=== PATIENT | male | born 1955 | race Caucasian/White ===

== ENCOUNTER 2023-08-19 19:31 | Outpatient (CLI) | payer OTHER | END 2023-08-19 23:59 | disposition critical access hospital (66) | LOC: EMS 19:31 | DX: R55 Syncope and collapse (principal); R53.83 Other fatigue | CPT/HCPCS: A0425; A0429 ==

== ENCOUNTER 2023-08-19 19:47 | Observation (INO) | payer OTHER ==
[2023-08-19 20:31] LABS: BASOPHILS % (AUTO) 0.3 %; EOSINOPHILS % (AUTO) 0.4 %; HCT - HEMATOCRIT 40.6 % (42.0-52.0); HGB - HEMOGLOBIN 14.1 g/dL (14.0-18.0); LYMPHOCYTES # (AUTO) 1.1 10^3/uL (1.5-3.5); LYMPHOCYTES % (AUTO) 13.5 %; MEAN CORPUSCULAR HEMOGLOBIN 30.6 pg (27.0-31.0); MEAN CORPUSCULAR HGB CONC 34.7 g/dL (32.0-36.0); MEAN CORPUSCULAR VOLUME 88.1 fL (80.0-94.0); MONOCYTES # (AUTO) 0.6 10^3/uL (0.0-1.0); MONOCYTES % (AUTO) 7.4 %; NEUTROPHILS # (AUTO) 6.1 10^3/uL (1.5-6.6); PLT - PLATELET COUNT 205 10^3/uL (130-450); RED BLOOD COUNT 4.61 10^6/uL (4.70-6.10); RED CELL DISTRIBUTION WIDTH 11.9 % (12.0-15.0); WHITE BLOOD COUNT 7.8 x10^3/uL (4.8-10.8)
[2023-08-19] MEDS: SODIUM CHLORIDE 0.9% 1,000 ML IV STA (20:32)
--- NOTE | 2023-08-19 20:43 | ED Physician Documentation ---
History of Present Illness - Stated complaint Stated Complaint: DIZZINESS - Chief complaint Chief Complaint: Neuro - History obtained from History obtained from: Patient - Additonal information Additional information: Patient is a 68-year-old male with a history of hypertension, hyperlipidemia presenting for evaluation of feeling diaphoretic and lightheaded this evening. Patient drove from the [place] area today to visit his daughter. This evening around 645 he reported breaking into a sweat and then went to the toilet to have a bowel movement and started feeling lightheaded. He denies that he had to strain significantly for the bowel movement. He feels that the diaphoresis and that the lightheadedness lasted approximately 30 minutes. He felt that he was going to faint but did not. He denies vertigo or room spinning sensation. Denies chest pain or shortness of air.He has recently felt fatigued over the past few weeks and [facility] He has not re cently had a stress test. No history of coronary artery disease. Does report a history of a right bundle branch block from childhood. No recent illness with cough, congestion. No abdominal symptoms. Review of Systems Constitutional: denies: Fever Cardiac: denies: Chest pain / pressure Respiratory: denies: Dyspnea GI: denies: Abdominal Pain, Vomiting : denies: Dysuria Neurologic: reports: Near syncope PD PAST MEDICAL HISTORY - Past Medical History Past Medical History: Yes Cardiovascular: Hypertension, High cholesterol Respiratory: None Neuro: None Endocrine/Autoimmune: None GI: GERD : None HEENT: None Psych: Anxiety Musculoskeletal: None Derm: None - Allergies Allergies/Adverse Reactions: Allergies Allergy/AdvReac Type Severity Reaction Status Date / Time Penicillins Allergy Hives Verified 08/19/23 20:01 - Social History Does the pt smoke?: No Smoking Status: Never smoker Does the pt drink ETOH?: No Does the pt have substance abuse?: No - Immunizations Immunizations are current?: Yes - POLST Patient has POLST: No PD ED PE NORMAL - General General: Alert and oriented X 3, No acute distress, Well developed/nourished - HEENT HEENT: Atraumatic, PERRL, EOMI, Moist mucous membranes, Pharynx benign - Neck Neck: Supple, no meningeal sign - Cardiac Cardiac: RRR, Strong equal pulses - Respiratory Respiratory: No respiratory distress, Clear bilaterally - Abdomen Abdomen: Normal bowel sounds, Soft, Non tender, Non distended - Derm Derm: Warm and dry - Extremities Extremities: No edema, No calf tenderness / cord - Neuro Neuro: Alert and oriented X 3, 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, No motor deficit, No sensory deficit, Normal speech Eye Opening: Spontaneous Motor: Obeys Commands Verbal: Oriented GCS Score: 15 Results - Vitals Vitals: Vital Signs - 24 hr 08/19/23 08/19/23 20:01 22:04 Temperature 36.8 C Heart Rate 94 105 H Heart Rate [ 109 H Sitting] Heart Rate [ 113 H Standing] Heart Rate [ 98 Supine] Respiratory 16 21 Rate Blood Pressure 126/70 117/68 Blood Pressure 113/72 [Sitting] Blood Pressure 117/68 [Standing] Blood Pressure 117/68 [Supine] O2 Saturation 97 96 Oxygen O2 Source Room air - EKG (time done) 2039 EKG releavant findings:: EKG personally interpreted by author of this note. Relevant findings are: Rate 90, normal sinus rhythm, right bundle branch block - Labs Labs: Laboratory Tests 08/19/23 08/19/23 20:27 20:27 WBC 7.8 RBC 4.61 L Hgb 14.1 Hct 40.6 L MCV 88.1 MCH 30.6 MCHC 34.7 RDW 11.9 L Plt Count 205 MPV 8.0 Neut # (Auto) 6.1 Lymph # (Auto) 1.1 L [place] # (Auto) 0.6 Eos # (Auto) 0.0 Baso # (Auto) 0.0 Absolute Nucleated RBC 0.00 Nucleated RBC % 0.0 Sodium 121 L Potassium 3.8 Chloride 90 L Carbon Dioxide 23 Anion Gap 8.0 BUN 16 Creatinine 0.9 Estimated GFR (MDRD) 84 L Glucose 177 H Calcium 9.1 Total Bilirubin 1.2 H AST 20 ALT 24 Alkaline Phosphatase 54 Troponin I High Sens 2.8 Total Protein 6.1 L Albumin 4.2 Globulin 1.9 L Albumin/Globulin Ratio 2.2 Lipase 29 PD Medical Decision Making - ED course Complexity details: reviewed results, re-evaluated patient, d/w patient ED course: Patient is a 68-year-old male with a history of hypertension presenting for evaluation of near syncope and recently feeling fatigued. EKG is nonischemic. No chest pain. CBC, chemistry, troponin were reviewed. Labs significant for hyponatremia with a sodium of 121. Patient states he was told in May that his sodium was slightly low at that time and was encouraged to reduce his water intake but he has not. He states that his doctor was planning to recheck it in a few months but prior to this he did not have any issues with low sodiums in the past. No vomiting or diarrhea.Patient is awake, conversant, no neurodeficits. Hypertonic saline was ordered as patient is symptomatic but it is unavailable currently in the hospital as prior stock was used for other patients this evening in the emergency department. Delay in admission due to lack of staffing for inpatient beds. Discussed with admitting hospitalist, Dr. Stanley, who will admit for further management. Departure - Departure Disposition: 67 [facility] Clinical Impression: Hyponatremia, Near syncope Condition: Good Discharge Date/Time: 08/20/23 01:24
[2023-08-19 20:46] LABS: ALBUMIN 4.2 g/dL (3.2-5.5); ALBUMIN/GLOBULIN RATIO 2.2 (1.0-2.2); BILIRUBIN,TOTAL 1.2 mg/dL (0.2-1.0); CALCIUM 9.1 mg/dL (8.5-10.3); CREATININE 0.9 mg/dL (0.6-1.3); POTASSIUM 3.8 mmol/L (3.5-4.5); TOTAL PROTEIN 6.1 g/dL (6.4-8.9)
[2023-08-19 20:59] LABS: TROPONIN I HIGH SENSITIVITY 2.8 ng/L (2.3-19.7)
--- NOTE | 2023-08-19 21:05 | XRAY Report ---
PROCEDURE: Chest 1V INDICATIONS: near syncope TECHNIQUE: One view of the chest was acquired. COMPARISON: None. FINDINGS: Surgical changes and devices: Post surgical changes are seen in lower cervical spine. Lungs and pleura: No pleural effusions or pneumothorax. Lungs are clear. Mediastinum: Mediastinal contours appear normal. Heart size is normal. Bones and chest wall: No suspicious bony lesions. Overlying soft tissues appear unremarkable. IMPRESSION: No acute cardiopulmonary process. Reviewed by: Saurabh Shelby MD on 08/19/2023 9:03 PM PDT Approved by: Saurabh Shelby MD on 08/19/2023 9:03 PM PDT Station ID: [id number]
[2023-08-19] MEDS: SODIUM CHLORIDE 3% HYPERTONIC 50 ML IV SCH (22:58)
[2023-08-20] MEDS ORDERED: SODIUM CHLORIDE FLUSH 0.9% 10 ML SYRINGE IVP PRN (00:22)
[2023-08-20] MEDS ORDERED: ONDANSETRON ODT 4 MG TABLET TL PRN (00:22)
[2023-08-20] MEDS ORDERED: oxyCODONE 5 MG TABLET PO PRN (00:22)
[2023-08-20] MEDS ORDERED: ACETAMINOPHEN 325 MG TABLET PO PRN (00:22)
[2023-08-20 00:51] LABS: BASOPHILS % (AUTO) 0.3 %; EOSINOPHILS # (AUTO) 0.1 10^3/uL (0.0-0.7); HCT - HEMATOCRIT 40.1 % (42.0-52.0); HGB - HEMOGLOBIN 13.8 g/dL (14.0-18.0); LYMPHOCYTES # (AUTO) 1.4 10^3/uL (1.5-3.5); LYMPHOCYTES % (AUTO) 19.7 %; MEAN CORPUSCULAR HEMOGLOBIN 30.6 pg (27.0-31.0); MEAN CORPUSCULAR HGB CONC 34.4 g/dL (32.0-36.0); MEAN CORPUSCULAR VOLUME 88.9 fL (80.0-94.0); MONOCYTES # (AUTO) 0.8 10^3/uL (0.0-1.0); MONOCYTES % (AUTO) 11.9 %; NEUTROPHILS # (AUTO) 4.7 10^3/uL (1.5-6.6); NEUTROPHILS % (AUTO) 66.8 %; PLT - PLATELET COUNT 198 10^3/uL (130-450); RED BLOOD COUNT 4.51 10^6/uL (4.70-6.10); RED CELL DISTRIBUTION WIDTH 11.9 % (12.0-15.0); WHITE BLOOD COUNT 7.1 x10^3/uL (4.8-10.8)
[2023-08-20 01:03] LABS: MAGNESIUM 1.9 mg/dL (1.7-2.3)
[2023-08-20 01:08] LABS: CHOL/HDL RATIO 2.7 (<5.0); CHOLESTEROL 134 mg/dL; HDL CHOLESTEROL 50 mg/dL; LDL CHOLESTEROL,CALCULATED 54 mg/dL; LDL/HDL RATIO 1.1 (<3.6); TRIGLYCERIDES 151 mg/dL (48-352); VLDL CHOLESTEROL 30 mg/dL
[2023-08-20 01:09] LABS: ALBUMIN 3.9 g/dL (3.2-5.5); ALBUMIN/GLOBULIN RATIO 2.3 (1.0-2.2); BILIRUBIN,TOTAL 0.6 mg/dL (0.2-1.0); CALCIUM 9.1 mg/dL (8.5-10.3); CREATININE 0.8 mg/dL (0.6-1.3); PHOSPHORUS 3.7 mg/dL (2.5-5.0); POTASSIUM 3.9 mmol/L (3.5-4.5); TOTAL PROTEIN 5.6 g/dL (6.4-8.9)
[2023-08-20 01:20] LABS: THYROID STIMULATING HORMONE 1.59 uIU/mL (0.34-5.60)
[2023-08-20] MEDS: SODIUM CHLORIDE FLUSH 0.9% 10 ML SYRINGE IVP SCH (01:30)
[2023-08-20] MEDS: POTASSIUM CHLORIDE 20 MEQ TABLET PO ONE (01:39)
--- NOTE | 2023-08-20 02:46 | HISTORY & PHYSICAL EXAMINATION ---
Chief Complaint - Chief Complaint Chief Complaint: weakness History of Present Illness - History of Present Illness HPI Comment/Other: pt presents with generalized fatigue, weakness, dizziness which has been worsening over last couple of days. no fevers, chills, chest pain, ams, sob. denies any falls. feels tired. h/o same and was told he has had low Na in the past and was told it was because he was drinking too much water. History - Past Medical History Cardiovascular: reports: Hypertension, High cholesterol Respiratory: reports: None Neuro: reports: None Endocrine/Autoimmune: reports: None GI: reports: GERD : reports: None HEENT: reports: None Psych: reports: Anxiety Musculoskeletal: reports: None Derm: reports: None MRSA Hx?: No - Past Surgical History Ortho: reports: Rotator cuff repair Neuro: reports: Other - POLST Patient has POLST: No Meds/Allgy - Allergies Allergies/Adverse Reactions: Allergies Allergy/AdvReac Type Severity Reaction Status Date / Time Penicillins Allergy Hives Verified 08/19/23 20:01 Review of Systems - Other Findings Other Findings: 14 pt review done with positives per hpi; all others reviewed as negative Exam - Vital Signs Vital Signs: Vital Signs x48h Temp Pulse Pulse Pulse Pulse Resp BP 08/20/23 02:16 37.0 C 08/20/23 02:00 75 H 08/19/23 22:04 105 H 109 H 113 H 98 21 117/68 08/19/23 20:01 36.8 C 94 16 126/70 BP BP BP BP Pulse Ox O2 Flow Rate 08/20/23 02:16 08/20/23 02:00 132/71 H 17 L 94 08/19/23 22:04 113/72 117/68 117/68 96 08/19/23 20:01 97 - Physical Exam Comments/Other: gen - aaox3, tired, polite, nad heent - eomi, nc/at heart - per ed charting lungs - per ed charting abd - no pain or discomfort noted or reported msk - no acute trauma or abnl, rom intact Conclusion/Plan - Lab Results Fish Bones: 08/20/23 00:47 08/20/23 00:47 - Other Other Results/Comments: pt with - - hyponatremia Na 120s --> 128 s/p ivf pt states he drinks a lot of water hold IVF, monitor Na levels no focal neuro deficits - dizziness likely d/t above no focal deficits check head ct, carotid us, 2d echo - generalized weakness in setting of above pt eval and treat f/u labs, electrolytes further orders per clinical course
[2023-08-20 04:52] LABS: BASOPHILS % (AUTO) 0.5 %; EOSINOPHILS # (AUTO) 0.1 10^3/uL (0.0-0.7); EOSINOPHILS % (AUTO) 1.1 %; HCT - HEMATOCRIT 38.2 % (42.0-52.0); HGB - HEMOGLOBIN 13.1 g/dL (14.0-18.0); LYMPHOCYTES # (AUTO) 1.3 10^3/uL (1.5-3.5); LYMPHOCYTES % (AUTO) 24.4 %; MEAN CORPUSCULAR HEMOGLOBIN 30.3 pg (27.0-31.0); MEAN CORPUSCULAR HGB CONC 34.3 g/dL (32.0-36.0); MEAN CORPUSCULAR VOLUME 88.4 fL (80.0-94.0); MEAN PLATELET VOLUME 8.3 fL (7.4-11.4); MONOCYTES # (AUTO) 0.7 10^3/uL (0.0-1.0); MONOCYTES % (AUTO) 12.3 %; NEUTROPHILS # (AUTO) 3.4 10^3/uL (1.5-6.6); NEUTROPHILS % (AUTO) 61.3 %; PLT - PLATELET COUNT 192 10^3/uL (130-450); RED BLOOD COUNT 4.32 10^6/uL (4.70-6.10); RED CELL DISTRIBUTION WIDTH 11.9 % (12.0-15.0); WHITE BLOOD COUNT 5.5 x10^3/uL (4.8-10.8)
[2023-08-20 05:11] LABS: ALBUMIN 3.8 g/dL (3.2-5.5); ALBUMIN/GLOBULIN RATIO 2.2 (1.0-2.2); BILIRUBIN,TOTAL 0.6 mg/dL (0.2-1.0); CALCIUM 8.9 mg/dL (8.5-10.3); CREATININE 0.7 mg/dL (0.6-1.3); PHOSPHORUS 3.8 mg/dL (2.5-5.0); POTASSIUM 4.1 mmol/L (3.5-4.5); TOTAL PROTEIN 5.5 g/dL (6.4-8.9)
--- NOTE | 2023-08-20 07:01 | CT Report ---
PROCEDURE: Head WO INDICATIONS: dizziness TECHNIQUE: Noncontrast 4.5 mm thick angled axial sections acquired from the foramen magnum to the vertex. For r adiation dose reduction, the following was used: automated exposure control, adjustment of mA and/or kV according to patient size. COMPARISON: None. FINDINGS: Image quality: Excellent. CSF spaces: Basal cisterns are patent. No extra-axial fluid collections. Ventricles are normal in size and shape. Brain: No midline shift. No intracranial masses or hemorrhage. Restrepo-white matter interface is norm al. Skull and face: Calvarium and visualized facial bones are intact, without suspicious lesions. Sinuses: Visualized sinuses and mastoids are clear. IMPRESSION: No acute intracranial pathology. Findings are concordant with preliminary interpretation provided by [facility]. Reviewed by: Martín Rock MD on 08/20/2023 6:59 AM PDT Approved by: Martín Rock MD on 08/20/2023 6:59 AM PDT Station ID: [id number]
[2023-08-20 08:45] LABS: CALCIUM 9.4 mg/dL (8.5-10.3); CREATININE 0.8 mg/dL (0.6-1.3); POTASSIUM 4.3 mmol/L (3.5-4.5)
[2023-08-20] MEDS: FAMOTIDINE 20 MG TABLET PO SCH (08:52)
[2023-08-20] MEDS: ENOXAPARIN 40 MG/0.4 ML SYRINGE SUBQ SCH (08:52)
[2023-08-20 11:02] LABS: ESTIMATED AVERAGE GLUCOSE 108 mg/dL (70-100); HEMOGLOBIN A1c% 5.4 % (4.27-6.07)
--- NOTE | 2023-08-20 11:17 | Discharge Plan ---
Discharge Plan Problem Reviewed?: Yes Disposition: Home, Self Care Condition: Good Diet: Cardiac Activity Restrictions: No Restrictions Shower Restrictions: No Driving Restrictions: No Health Concerns: The patient was admitted with extremely low sodium levels. This appears to be multifactorial secondary to diuretics, excessive water intake and drinking beer. Would recommend holding his water pills, cutting back and his water intake. He also should hold off on further alcohol use for now. Would recommend close follow up with his primary care provider. He will need his sodium to be closely followed Assessment: 1. Acute hyponatremia Patient presented to the emergency room with weakness and just not feeling right. He was found to have a sodium level of 121. With treatment the patient's sodium level has risen to 130 and he feels back to his normal self. The patient tells me that he takes triamterene at home as needed for swelling. He said he took 2 tablets yesterday and takes it fairly regularly these days. There is no record of that in the system. He is advised to stop the triamterene. Also he drinks quite a bit of water as well as 3-4 beers several times a week. He is advised to stay away from alcohol for the time being and try to drink a little bit less water going forward. He should follow-up with his primary care physician and will need his sodium levels followed closely in the outpatient setting 2. Weakness likely due to hyponatremia Much improved 3. Hyperglycemia Improved as well. Likely reactive. He should follow-up with his primary care physician and have a chemistry panel checked 4. Obesity BMI 31.2 Weight loss is recommended through dietary modification and exercise as tolerated 5. Alcohol use Patient drinks 3-4 beers several times a week. Would recommend holding off on this for now. He states it would be no problem to not drink. Cessation is recommended at this point No Smoking: If you smoke, Please STOP! Call for help.
--- NOTE | 2023-08-20 12:04 | DISCHARGE SUMMARY ---
Discharge Summary Admit Date: 08/20/23 Discharge Date: 08/20/23 Discharging Provider: Claritza Díaz PA-C Primary Care Provider: Dr Chavez Hall Code Status: Attempt Resuscitation Condition at Discharge: Good Discharge Disposition: 01 Home, Self Care - DIAGNOSES Discharge Diagnoses with Status of Each Condition: 1. Acute hyponatremia Patient presented to the emergency room with weakness and just not feeling right. He was found to have a sodium level of 121. With treatment the patient's sodium level has risen to 130 and he feels back to his normal self. The patient tells me that he takes triamterene at home as needed for swelling. He said he took 2 tablets yesterday and takes it fairly regularly these days. There is no record of that in the system. He is advised to stop the triamterene. Also he drinks quite a bit of water as well as 3-4 beers several times a week. He is advised to stay away from alcohol for the time being and try to drink a little bit less water going forward. He should follow-up with his primary care physician and will need his sodium levels followed closely in the outpatient setting 2. Weakness likely due to hyponatremia Much improved 3. Hyperglycemia Improved as well. Likely reactive. He should follow-up with his primary care karri berry and have a chemistry panel checked 4. Obesity BMI 31.2 Weight loss is recommended through dietary modification and exercise as tolerated 5. Alcohol use Patient drinks 3-4 beers several times a week. Would recommend holding off on this for now. He states it would be no problem to not drink. Cessation is recommended at this point - HPI History of Present Illness: From the admission HP: pt presents with generalized fatigue, weakness, dizziness which has been worsening over last couple of days. no fevers, chills, chest pain, ams, sob. denies any falls. feels tired. h/o same and was told he has had low Na in the past and was told it was because he was drinking too much water. - HOSPITAL COURSE Hospital Course: The patient received IV fluids in the emergency room. His sodium level has improved and currently is 130. His dizziness and weakness have improved as well. The patient tells me that he takes a water pill that he thinks is triamterene. This is not in any of the records and he states he just takes it as needed but has been taking it more often recently. He is encouraged to hold this. He also drinks quite a bit of beer several times a week as well as excessive water intake. I have encouraged him to quit drinking the beer and he does not think that is going to be a problem. Also to drink less water going forward. He will need close follow-up by his primary care physician. He should see him within the next week and have his sodium level monitor closely - ALLERGIES Allergies/Adverse Reactions: Allergies Allergy/AdvReac Type Severity Reaction Status Date / Time Penicillins Allergy Hives Verified 08/19/23 20:01 - PHYSICAL EXAM AT DISCHARGE General Appearance: positive: No acute distress, Alert Eyes Bilateral: positive: Normal inspection ENT: positive: ENT inspection nml Neck: positive: Nml inspection Respiratory: positive: Chest non-tender, No respiratory distress, Breath sounds nml Cardiovascular: positive: Regular rate & rhythm, No murmur, No gallop. negative: Friction rub Abdomen: positive: Non-tender, No organomegaly, Nml bowel sounds Skin: positive: Color nml, No rash, Warm, Dry Extremities: positive: Non-tender, Full ROM Neurologic/Psychiatric: positive: Oriented x3, CN's nml (2-12) - LABS Result Diagrams: 08/20/23 04:21 08/20/23 08:26 - SEPSIS Current Stage of Sepsis: Ruled out - QUALITY (Female Hip Fx Only) Was patient sent home on osteoporosis medication?: No (N/A) - FOLLOW UP Follow Up: Follow up with Dr Chavez Hall in 1 week - TIME SPENT Time Spent in Discharge (Minutes): 35
[2023-08-20 12:36] VITALS: BP 113/80; O2SAT 98
--- NOTE | 2023-08-20 12:36 | Ultrasound Report ---
PROCEDURE: Carotid Doppler Complete INDICATIONS: dizziness, lightheaded TECHNIQUE: Color and pulse Doppler interrogation was performed of both carotid systems, with image documentation and velocity measurements. COMPARISON: None. FINDINGS: Right side: Brachial blood pressure: 136 mm Hg. Common carotid artery peak systolic velocity: 77 cm/sec. Internal carotid artery peak systolic velocity: 69 cm/sec. Internal carotid artery end diastolic velocity: 34 cm/sec. External carotid artery peak systolic velocity: 79 cm/sec. ICA/CCA peak systolic ratio: 0.9 . Restrepo scale imaging description: Minimal atherosclerotic plaque. Percent internal carotid artery stenosis: Less than 50 percent stenosis. Vertebral artery: Flow direction is antegrade. Left side: Brachial blood pressure: 111 mm Hg. Common carotid artery peak systolic velocity: 85 cm/sec. Internal carotid artery peak systolic velocity: 82 cm/sec. Internal carotid artery end diastolic velocity: 35 cm/sec. External carotid artery peak systolic velocity: 76 cm/sec. ICA/CCA peak systolic ratio: 0.96 . Restrepo scale imaging description: Minimal atherosclerotic plaque. Percent internal carotid artery stenosis: Less than 50 percent stenosis. Vertebral artery: Flow direction is antegrade. IMPRESSION: 1. In the right internal carotid artery, there is less than 50 percent stenosis based on peak systoli c velocity criteria. 2. In the left internal carotid artery, there is less than 50 percent stenosis based on peak systolic velocity criteria. 3. Antegrade blood flow within the right vertebral artery. 4. Antegrade blood flow within the left vertebral artery. 5. Greater than 10 mmHg difference in the bilateral brachial pressures which is nonspecific and may b e seen in the setting of a subclavian artery stenosis. The estimate of stenosis included in the report of the imaging study was calculated using the [facility]-end orsed standards of carotid artery stenosis. Reviewed by: Reina Garcia MD on 08/20/2023 12:35 PM PDT Approved by: Reina Garcia MD on 08/20/2023 12:35 PM PDT Station ID: [id number]
[2023-08-20 12:43] LABS: CALCIUM 9.4 mg/dL (8.5-10.3); CREATININE 0.7 mg/dL (0.6-1.3); POTASSIUM 4.2 mmol/L (3.5-4.5)
== END 2023-08-20 13:30 | disposition home or self-care (01) ==
LOC: ED 19:47 → ICU 08-20 00:22
PROVIDERS: ADMIT Student in an Organized Health Care Education/Training Program; ATTEND Physician Assistant
DX: E87.1 Hypo-osmolality and hyponatremia (principal); R73.9 Hyperglycemia, unspecified; E66.9 Obesity, unspecified; I10 Essential (primary) hypertension; E78.00 Pure hypercholesterolemia, unspecified; I45.10 Unspecified right bundle-branch block; Z68.31 Body mass index [BMI] 31.0-31.9, adult
CPT/HCPCS: 36415; 70450; 71045; 80048; 80053; 80061; 83036; 83690; 83735; 84100; 84443; 84484; 85025; 87150; 93005; 93880; 96360; 96361; 96372; 99285; A9270; G0378; J1650; 83721